=== PATIENT | male | born 1965 | race African-American/Black ===

== ENCOUNTER 2019-05-21 14:31 | Emergency (ER) | payer SELFPAY ==
[~2019-05-21] VITALS: Ht 170.2 cm; Wt 90.7 kg
--- NOTE | 2019-05-21 15:52 | RAD ---
PORTABLE CHEST 1V History: Syncope. Headache. Comparison: None. Findings: No consolidation or pleural effusion. Normal heart size. Impression: 1. No acute cardiopulmonary process. Electronically signed by: Donovan Fuchs DO (05/21/2019 3:49 PM) [id number]
[2019-05-21] MEDS ORDERED: IOHEXOL 350 MG/ML 100 ML VIAL. IV ONE (16:00)
[2019-05-21 16:06] LABS: BASO % 1 % (0-3); EOS # 0.2 x10^3/uL (0.0-0.7); EOS % 6 % (0-3); HEMOGLOBIN 13.6 g/dL (13.0-17.5); LYMPH # 1.7 x10^3/uL (1.0-4.8); LYMPH % 42 % (24-48); MEAN CORPUSCULAR HEMOGLOBIN 30 pg (25-35); MEAN CORPUSCULAR HGB CONC 34 g/dL (31-37); MEAN CORPUSCULAR VOLUME 89 fL (79-100); MONO # 0.4 x10^3/uL (0.0-1.1); MONO % 10 % (0-9); NEUT # 1.7 x10^3/uL (1.8-7.7); NEUT % 42 % (31-73); PLATELET COUNT 183 x10^3/uL (140-400); RED BLOOD COUNT 4.51 x10^6/uL (4.30-5.70); RED CELL DISTRIBUTION WIDTH 15.5 % (11.5-14.5); WHITE BLOOD COUNT 4.1 x10^3/uL (4.0-11.0)
[2019-05-21 16:18] LABS: CALCIUM 9.1 mg/dL (8.5-10.1); CREATININE 1.2 mg/dL (0.7-1.3); GFR 76.3; POTASSIUM 4.2 mmol/L (3.5-5.1)
--- NOTE | 2019-05-21 16:27 | EKG ---
[facility] [address] [place] [address] Test Date: 2019-05-21 Test Time: 14:55:02 Pat Name: YAEL PAYNE Department: Room: Gender: Parts Identifier: : [id number] Requested By: STEVEN COTTON Order Number: [id number] Reading MD: Measurements Intervals [place] Rate: 67 P: 40 IN: 148 QRS: 30 QRSD: 80 T: 49 QT: 386 QTc: 411 Interpretive Statements SINUS RHYTHM OTHERWISE NORMAL ECG RI6.01 Unconfirmed report No previous ECG available for comparison
[2019-05-21 16:28] LABS: ALBUMIN 3.8 g/dL (3.4-5.0); ALBUMIN/GLOBULIN RATIO 1.2 (1.0-1.7); MAGNESIUM 2.1 mg/dL (1.8-2.4); TOTAL BILIRUBIN 0.3 mg/dL (0.2-1.0); TOTAL PROTEIN 7.1 g/dL (6.4-8.2)
--- NOTE | 2019-05-21 17:14 | RAD ---
Exam: CTA head INDICATION: Headache for 3 days TECHNIQUE: Sequential axial images through the head obtained following the administration of 75 mL of Omni 350 IV contrast. Sagittal and coronal reformatted images were reconstructed from the axial data and reviewed. 3-D reformatted images were reconstructed from the axial data and reviewed. Comparisons: None FINDINGS: Embolization coils are noted at the right supraclinoid, anterior communicating artery, A2/A3 segment, and left carotid terminus. Mild atherosclerotic plaque of the cavernous segment of the right internal carotid artery without significant stenosis. Right MCA is patent. Right SUE is patent. Mild left carotid plaque of the cavernous segment of the left internal carotid artery without significant stenosis. Left MCA is patent. Right vertebral artery is diminutive. Left vertebral artery is patent. Basilar artery is patent without evidence of stenosis, occlusion or aneurysm. Major branch vessels arising off of the basilar artery are patent. forest economist are patent bilaterally. Visualized portions of the dural venous sinuses are patent. No large intraparenchymal lesion, vascular territory infarct or hemorrhage is identified. Ventricular system is within normal limits without compression hydrocephalus. Basal cisterns are well maintained. IMPRESSION: 1. Aneurysmal coiling as described above. No large vessel occlusion identified. 2. Evaluation for hemorrhage, particularly subarachnoid hemorrhage, and infarction is limited secondary to postcontrast technique Exposure: One or more of the following in the visualized dose reduction techniques were utilized for this examination: 1. Automated exposure control 2. Adjustment of the MA and/or KV according to patient size 3. Use of iterative of reconstructive technique Electronically signed by: Teodoro Dockery MD (05/21/2019 5:11 PM) [id number]
[2019-05-21] MEDS ORDERED: BUTA1CAP31 PO (17:24)
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
[2019-05-21 17:58] VITALS: BP 136/86
== END 2019-05-21 17:59 | disposition home or self-care (01) ==
LOC: ER 14:31
DX: R51 Headache (principal); R55 Syncope and collapse; I67.1 Cerebral aneurysm, nonruptured
CPT/HCPCS: 36415; 70496; 71045; 80053; 83735; 84484; 85025; 93005; 99285; Q9967